=== PATIENT | female | born 1985 | race African-American/Black ===

== ENCOUNTER 2017-10-11 23:42 | Observation (INO) | payer BC ==
[2017-10-12 00:12] LABS: #Basophils 0.1 thou/uL (0.0-0.2); #Eosinphils 0.2 thou/uL (0.0-0.7); #Lymphocytes 3.4 thou/uL (1.20-3.40); #Monocytes 0.5 thou/uL (0.11-0.59); #Neutrophils 5.3 thou/uL (1.40-6.50); %Eosinophils 2.5 % (0.0-10.0); %Lymphocytes 35.8 % (21.0-51.0); %Monocytes 4.8 % (0.0-10.0); %Neutrophils 55.9 % (42.0-75.0); Hemoglobin 11.1 g/dL (12.0-16.0); Mean Corpuscular HGB CONC 33.6 g/dL (32.0-36.0); Mean Corpuscular Hemoglobin 25.9 pg (27.0-31.0); Mean Corpuscular Volume 77.2 fl (81.0-99.0); Mean Platelet Volume 8.6 fL (7.4-10.4); Platelet Count 250 thou/uL (130-400); RBC Distribution Width 17.7 % (11.5-14.5); Red Blood Cell (RBC) Count 4.29 mill/uL (4.20-5.40); White Blood Cell (WBC) Count 9.6 thou/uL (4.8-10.8)
[2017-10-12 00:18] LABS: BHCG - Serum POSITIVE (NEGATIVE); Pregs Control Background? CLEAR/WHITE (CLR/WHITE); Pregs Control Bar Appear? YES (CONTROL BAR)
[2017-10-12 00:33] LABS: ALT (SGPT) 20 U/L (8-55); AST (SGOT) 16 U/L (5-34); Albumin 3.7 g/dL (3.5-5.0); Alkaline Phosphatase 59 U/L (40-150); Anion Gap 11 mmol/L (10-20); BUN (Urea Nitrogen) 7 mg/dL (7.0-18.7); Bilirubin, Total 0.3 mg/dL (0.2-1.2); Calc. Creatinine Clearance 0 mL/min (70-130); Calcium 9.6 mg/dL (7.8-10.44); Carbon Dioxide 21 mmol/L (22-29); Chloride 105 mmol/L (98-107); Estimated GFR-MDRD Greater than 90; Glucose 116 mg/dL (70-105); Potassium 3.4 mmol/L (3.5-5.1); Protein, Total 6.7 g/dL (6.0-8.3); Sodium 134 mmol/L (136-145)
[2017-10-12 03:24] LABS: Bilirubin Negative (Negative); Blood, Urine Negative (Negative); Clarity CLEAR (Clear); Glucose, Urine (Dipstick) Negative (Negative); Leukocyte Negative (Negative); Nitrite Negative (Negative); Protein, Urine (Dipstick) Negative (Neg-Trace); Specific Gravity, Urine 1.022 (1.002-1.036); Urobilinogen 0.2 mg/dL (0.2-1.0)
[2017-10-12] MEDS ORDERED: Acetaminophen 500 MG TAB ONE (04:13)
[2017-10-12] MEDS ORDERED: Ondansetron HCl/PF 4 MG/2 ML Vial IVP PRN (08:10)
[2017-10-12 08:15] VITALS: BMI 41.9
--- NOTE | 2017-10-12 09:11 | ULT ---
PRELIMINARY REPORT/[facility]/EMERGENTY AFTER-HOURS PROCEDURE US After First Trimester, Transabdominal US , Transvaginal US Duplex Arterial/Venous of the Pelvis, Limited CLINICAL HISTORY: 32 years old, female; Pain; complicated by abdominal or pelvic pain; Periumbilical; Second trimester; Gestational age or lmp: 17w1d; ; Patient HX: Periumbilical pain, no bleeding TECHNIQUE: Real-time transabdominal and endovaginal obstetrical ultrasound of the maternal pelvis and a second o r third trimester with image documentation. Endovaginal imaging was used for better evaluat ion of the fetus and adnexa. Real-time duplex ultrasound scan of the pelvis integrating B-mode two-di mensional vascular structure, Doppler spectral analysis and color flow Doppler imaging. COMPARISON: No relevant prior studies available. FINDINGS: Transabdominal obstetrical ultrasound was performed. Transvaginal ultrasound was performed for evalua tion of the cervix. Duplex ultrasound scan with color Doppler flow and spectral waveform analysis was also performed for evaluation of pelvic and ovarian blood flow and torsion. Fetus: Single living intrauterine gestation. Heart rate: 131 bpm Presentation: Vertex. Placenta: Posterior. No abruption. Placental edge is 2.3 cm from the internal cervical os. Amniotic fluid: Appears adequate. Anatomy: Not formally evaluated. BIOMETRICS Gestational age by US: 17w1d Gestational age by LMP: 17w1d EFW: 188g - 52% MATERNAL: Uterus: No myometrial mass. Cervix: Unremarkable. Closed. Measures 3.8 cm in length. Ovaries: Left ovary not visualized. Unremarkable right ovary. No mass. Normal blood flow. No evidence of torsion. Free fluid: No significant free fluid. IMPRESSION: Single viable intrauterine . No acute findings. Thank you for allowing us to participate in the care of your patient. Dictated and Authenticated by: Vikram Wallace MD 10/12/2017 4:53 AM Central Time ([place] & [place]) TRANSABDOMINAL AND TRANSVAGINAL PELVIC ULTRASOUND WITH DUPLEX ULTRASOUND OF THE PELVIS: FINAL REPORT FINDINGS: I agree with the preliminary report given by Dr. Wallace from [facility]. POS: [facility]
[2017-10-12] MEDS: Sodium Chloride 0.9% 1,000 ML IV SCH ×2 (09:41→17:35)
[2017-10-12] MEDS ORDERED: CEFAZOLIN/Water 2 GM/20 ML SYRINGE SLOW IVP SCH (12:15)
[2017-10-12] MEDS ORDERED: CEFAZOLIN/Water 2 GM/20 ML SYRINGE ONE (12:15)
--- NOTE | 2017-10-12 12:18 | HP ---
HISTORY OF PRESENT ILLNESS: Ms. Stewart is a 32-year-old woman who is 16 weeks who developed u mbilical pain when reaching over to pick something up yesterday. She thought that it would go away o vernight, but when she got up this morning it was still hurting, so she came into the emergency room. She has not had any fevers, chills, nausea or vomiting. The pain is limited to the umbilical area and does not radiate. In the emergency room, she was noted to have an incarcerated umbilical hernia which was tender with efforts to reduce it. She has not had any vaginal bleeding or contractions. S he is G5, P4. She has had gestational diabetes and hypertension with this , but is otherwis e healthy. She has no history of high blood pressure or diabetes prior to this . The pain is better on pain medications, but no other alleviating factors are noted. PAST MEDICAL HISTORY: None chronic, gestational diabetes and hypertension with this as wel l as anemia. PAST SURGICAL HISTORY: Removal of uterine polyps in [place]. SOCIAL HISTORY: She does not smoke, drink or use illicit drugs. FAMILY HISTORY: Hypertension in her father and diabetes in her mother. REVIEW OF SYSTEMS: Ten-system review of systems is negative except per HPI and the following. The p atient has had some constipation recently and after recent bowel movement, she did notice some blood on stool. The stool itself, however, was normal and she has not had any bleeding before or since. PHYSICAL EXAMINATION: VITAL SIGNS: Patient is afebrile, heart rate 88, respirations 18, 97% saturated on room air, blood p ressure 118/75. GENERAL: Reveals a healthy appearing woman in no acute distress. She is not flushed or toxic in nathaniel earance. She is not jaundiced or icteric. HEENT: Unremarkable. NECK: Supple without lymphadenopathy or thyroid nodules. HEART: Regular in its rate and rhythm without murmurs, rubs or gallops. LUNGS: Clear to auscultation bilaterally. ABDOMEN: Soft and nondistended. She has a tender umbilical hernia which is not able to be reduced. This is not, however, distended or tense. She is otherwise nontender to abdominal palpation. EXTREMITIES: Warm and well perfused without edema. NEUROLOGIC: No focal deficits. PSYCHIATRIC: Alert, oriented, and appropriate. IMAGING DATA: Pelvic ultrasound was performed in the emergency room. This showed a single intrauter ine with heart rate of 131 and no acute findings. LABORATORY DATA: White count is normal. Electrolytes are unremarkable. LFTs are normal. Serum pre gnancy is positive and hematocrit is 33. UA was positive for ketones, but otherwise unremarkable. ASSESSMENT: Incarcerated umbilical hernia which is symptomatic and reducible. PLAN: I have recommended open repair with mesh since the patient is unable to tolerate her usual act ivities due to pain at the site. She is in her second trimester, so should tolerate this reasonably well. I have contacted her ARCHEOLOGY PROFESSOR to evaluate her and discussed with her the risks to her , but I feel that these are minimal. Inherent risks of the surgery include bleeding, infection, risks of anesthesia, damage to nearby structures including bowel and blood vessels, recurrence of the [place] ia, mesh infection requiring mesh explantation and miscarriage. The patient understands and accepts these risks and wishes to proceed. I will order antibiotics microelectronics assembler to the operating room.
[2017-10-12] MEDS ORDERED: Bupivacaine/Epinephrine 0.25% 30 ML VIAL ONE (13:31)
[2017-10-12] MEDS ORDERED: Fentanyl 250 MCG/5 ML VIAL ONE (13:35)
[2017-10-12] MEDS ORDERED: Midazolam HCl 2 mg/2 ml Vial ONE (13:35)
[2017-10-12] MEDS ORDERED: Ondansetron HCl/PF 4 MG/2 ML Vial ONE ×2 (13:43→16:29)
[2017-10-12] MEDS ORDERED: Meperidine HCl/PF 25 MG/ML VIAL SLOW IVP PRN (15:17)
[2017-10-12] MEDS ORDERED: Promethazine HCl 25 MG/ML VIAL IM PRN (15:17)
[2017-10-12] MEDS ORDERED: Promethazine HCl 25 MG/ML VIAL SLOW IVP PRN (15:17)
[2017-10-12] MEDS ORDERED: Fentanyl 100 MCG/2 ML VIAL ONE ×3 (15:35→16:28)
[2017-10-12] MEDS ORDERED: PROPOFOL 200 MG/20 ML VIAL ONE (16:29)
[2017-10-12] MEDS ORDERED: Lidocaine 1% PF 5 ML VIAL ONE (16:29)
[2017-10-12] MEDS ORDERED: Succinylcholine Chloride 20 MG/ML 10 ml SYRINGE FS ONE (16:29)
[2017-10-12] MEDS ORDERED: Glycopyrrolate 0.2 MG/ML 5 ML SYRINGE ONE (16:29)
[2017-10-12] MEDS ORDERED: Dexamethasone 20 MG/5 ML VIAL ONE (16:29)
[2017-10-12] MEDS ORDERED: HYDROcodone/Acetaminophen 7.5/325 mg Tablet PO PRN (17:45)
[2017-10-12] MEDS ORDERED: Promethazine 25 MG TAB PO PRN ×2 (17:46→17:47)
[2017-10-12] MEDS ORDERED: Morphine 4 MG/ML VIAL SLOW IVP PRN ×2 (17:47)
[2017-10-12] MEDS ORDERED: Ondansetron HCl/PF 4 MG/2 ML Vial SLOW IVP PRN (17:48)
[2017-10-12] MEDS: HYDROcodone/Acetaminophen 7.5/325 mg Tablet PO PRN ×2 (18:05→22:21)
--- NOTE | 2017-10-12 19:21 | CON ---
DATE OF CONSULTATION: 10/12/2017 CONSULTING PHYSICIAN: Emile Suárez M.D. REASON FOR CONSULTATION: A 16-week intrauterine with incarcerated umbilical hernia. HISTORY OF PRESENT ILLNESS: This is a 32-year-old at 17 weeks 0 days by last menstrual period with a past medical history significant for obesity, prediabetes, hypothyroidism and history of gesta tional hypertension, developed severe onset umbilical pain yesterday, radiating to her upper abdomen. This pain was unmanageable at home and she was brought into the ER where she had an ultrasound, it showed a live intrauterine , heart rate 131, normal posterior placenta. Uterus was no rmal. Cervical length was 3.8 cm. Ovaries were normal. She has not had any vomiting. Complains of some nausea. No fever or chills. Normal bowel movements. No urinary symptoms or vaginal bleeding. No vaginal discharge. PAST MEDICAL HISTORY: Morbid obesity, prediabetes, gestational hypertension and hypothyroidism. PAST SURGICAL HISTORY: Hysteroscopy. SOCIAL HISTORY: Negative x3. FAMILY HISTORY: Hypertension and diabetes. CURRENT MEDICATIONS: Normal saline 125 mL per hour and Zofran 4 mg IV p.r.n. nausea, vomiting. ALLERGIES: No known drug allergies. OBSTETRIC HISTORY: , term vaginal deliveries x4. GYNECOLOGIC HISTORY: ASCUS high risk HPV positive on most recent Pap last month. We will have a rep eat Pap smear . REVIEW OF SYSTEMS: Negative except as noted in HPI. PHYSICAL EXAMINATION: VITAL SIGNS: Pulse is 88, respirations 18, pulse ox 97% on room air, blood pressure 118/75. GENERAL: No acute distress, alert and oriented x3. CARDIAC: Regular rate and rhythm. LUNGS: Clear to auscultation bilaterally. ABDOMEN: Soft, nondistended. Tenderness over the umbilicus with a protruding hernia that is very te nder to palpation. I did not attempt to reduce this mass. She had positive FHTs in the 130s. EXTREMITIES: No edema, cyanosis or clubbing. PELVIC: Deferred. LABORATORY DATA: White count is normal, hemoglobin 11.1. Sodium 134, potassium 3.4, glucose is 116, creatinine 0.74. ASSESSMENT AND PLAN: This is a 32-year-old at 17 weeks 0 days with acute onset umbilical pain and a suspected incarcerated hernia. She has been seen by General Surgery and is on their service an d has been dispositioned for exploration with repair of umbilical hernia, reduction of herniated cont ents and mesh placement. I discussed with the patient the risk of surgery including miscarriage; how ever, she is in the ideal range for surgery during for optimal outcomes, discussed the medi cations use during her surgery would be safe for the baby and recommend FHTs pre-and post-surgery. I f there are any additional concerns from the primary team, please contact me via cell. Thank you for the consultation.
[2017-10-12] MEDS ORDERED: Polyethylene Glycol 3350 17 GM Packet PO PRN (21:55)
[2017-10-12] MEDS ORDERED: metFORMIN 500 MG TAB PO SCH (22:00)
[2017-10-12] MEDS ORDERED: Ferrous Sulfate 325 MG TAB PO SCH (22:00)
[2017-10-12] MEDS ORDERED: Docusate 100 MG CAP PO SCH (22:00)
[2017-10-13] MEDS: HYDROcodone/Acetaminophen 7.5/325 mg Tablet PO PRN ×3 (02:28→12:36)
[2017-10-13] MEDS ORDERED: Ferrous Sulfate 325 MG TAB PO SCH (08:00)
[2017-10-13] MEDS ORDERED: metFORMIN 500 MG TAB PO SCH (08:00)
[2017-10-13] MEDS ORDERED: Docusate 100 MG CAP PO SCH (09:00)
[2017-10-13] MEDS ORDERED: Prenatal Vitamin 1 TAB PO SCH (09:00)
[2017-10-13] MEDS ORDERED: Calcium Carbonate 600 MG TAB PO SCH (09:00)
[2017-10-13 12:41] VITALS: BP 134/78; TEMP 98
--- NOTE | 2017-10-14 14:26 | OP ---
DATE OF SERVICE: 10/12/2017. PROCEDURE: Repair of incarcerated umbilical hernia with mesh. PREOPERATIVE DIAGNOSIS: Incarcerated umbilical hernia. POSTOPERATIVE DIAGNOSIS: Incarcerated umbilical hernia. HISTORY: Ms. Stewart is a 32-year-old woman who is in her second trimester of . She had acute onset of severe umbilical pain and was sent to have an incarcerated umbilical hernia containing fat only by CT scan. Due to her severe symptoms, recommendation was made to proceed with repair. Due to the size of the hernia, repair with mesh was recommended. PROCEDURE: After informed consent was obtained and appropriate preoperative antibiotics administered , the patient was taken to the operating room. She was placed in supine position and general anesthe edilberto was administered. She was prepped and draped in a standard sterile fashion and local anesthesia infused to the skin and subcutaneous tissues at the level of the umbilicus. A circumumbilical incisi on was made and dissection carried down to the hernia sac which was dissected free circumferentially to the fascial defect. The hernia sac was found to contain some omentum with some adhesions which we re taken down sharply through the avascular plane following which part of the omentum was able to be reduced back into the abdominal cavity; however, the remaining omentum was too indurated to reduce th rough the small fascial defect, so this was ligated and excised. The thickened hernia sac was likewi se excised using electrocautery. The preperitoneal space was able to be created to mostly cover the mesh. A 6.4 cm Ventralex mesh was obtained and placed into this space and confirmed to be lying flat against the fascia anteriorly. The fascial defect was then closed with interrupted permanent braide d sutures incorporating the central strap into the closure to secure the mesh. The subcutaneous spac e was irrigated and examined for hemostasis which was excellent. The subcutaneous tissues were reapp roximated with 3-0 Monocryl suture and the skin was closed with a running 4-0 Monocryl suture. Once the skin was closed, Dermabond dressings were placed and once the Dermabond was dry, a pressure dress ing was placed and the patient was taken to recovery in good condition. Estimated blood loss was min imal. There were no complications. There were no specimens.
== END 2017-10-13 12:50 | disposition home or self-care (01) ==
LOC: ERS 23:42 → SURG A 10-12 06:21
PROVIDERS: ADMIT Specialist; ATTEND Specialist
PROC: 0WUF0JZ Supplement Abdominal Wall with Synthetic Substitute, Open Approach (ICD-10-PCS; principal; 2017-10-13)
DX: O99.612 Diseases of the digestive system complicating pregnancy, second trimester (principal); K42.0 Umbilical hernia with obstruction, without gangrene; O99.89 Other specified diseases and conditions complicating pregnancy, childbirth and the puerperium; R73.03 Prediabetes; O13.2 Gestational [pregnancy-induced] hypertension without significant proteinuria, second trimester; O99.282 Endocrine, nutritional and metabolic diseases complicating pregnancy, second trimester; E03.9 Hypothyroidism, unspecified; O99.212 Obesity complicating pregnancy, second trimester; E66.01 Morbid (severe) obesity due to excess calories; Z68.41 Body mass index [BMI] 40.0-44.9, adult; Z79.84 Long term (current) use of oral hypoglycemic drugs; Z79.899 Other long term (current) drug therapy; Z3A.17 17 weeks gestation of pregnancy
CPT/HCPCS: 36415; 36416; 76856; 80053; 81003; 84702; 84703; 85025; 96360; 96361; A4216; G0378; J1100; J2001; J2250; J2405; J2704; J3010

== ENCOUNTER 2018-03-08 05:30 | Inpatient (IN) | payer BC ==
[2018-03-08] MEDS ORDERED: Penicillin G Potassium 5 MILL.UNITS VIAL ONE ×2 (07:55→07:56)
[2018-03-08] MEDS ORDERED: Sodium Chloride 0.9% 100 ML ONE (07:55)
[2018-03-08] MEDS ORDERED: NS w/ Oxytocin 10 units 500 ML ONE (07:55)
[2018-03-08] MEDS: Lactated Ringer's 1,000 ML IV SCH ×3 (08:30→15:02)
[2018-03-08] MEDS ORDERED: Misoprostol 200 MCG TAB PR PRN (08:41)
[2018-03-08] MEDS ORDERED: Penicillin G Potassium 5 MILL.UNITS in Sodium Chloride 0.9% 100 ML IVPB SCH (08:41)
[2018-03-08] MEDS ORDERED: Acetaminophen 500 MG TAB PO PRN (08:41)
[2018-03-08] MEDS ORDERED: Methylergonovine 0.2 MG/ML VIAL IM PRN (08:41)
[2018-03-08] MEDS ORDERED: NS w/ Oxytocin 10 units 500 ML IV SCH (08:41)
[2018-03-08] MEDS ORDERED: Ibuprofen 800 MG TAB PO PRN (08:41)
[2018-03-08] MEDS ORDERED: Lidocaine 1% (PF) 30 ML VIAL SC PRN (08:41)
[2018-03-08] MEDS ORDERED: Carboprost 250 MCG/ML AMP IM PRN (08:41)
[2018-03-08] MEDS ORDERED: Butorphanol Tartrate 1 MG/ML VIAL SLOW IVP PRN (08:41)
[2018-03-08] MEDS ORDERED: Diphenoxylate HCl/Atropine Tablet PO PRN (08:41)
[2018-03-08] MEDS ORDERED: Promethazine HCl 25 MG/ML VIAL IM PRN ×2 (08:41→13:24)
[2018-03-08] MEDS ORDERED: HYDROcodone/Acetaminophen 5/325 mg Tablet PO PRN ×2 (08:41→21:22)
[2018-03-08] MEDS ORDERED: Ondansetron HCl/PF 4 MG/2 ML Vial IVP PRN ×3 (08:41→21:22)
[2018-03-08 09:01] VITALS: BMI 41.4
[2018-03-08 09:07] LABS: Hemoglobin 10.6 g/dL (12.0-16.0); Mean Corpuscular Volume 81.1 fL (78.0-98.0); Mean Platelet Volume 8.4 fL (7.4-10.4); Platelet Count 196 thou/uL (130-400); RBC Distribution Width 14.3 % (11.5-14.5); Red Blood Cell (RBC) Count 4.09 mill/uL (4.20-5.40); White Blood Cell (WBC) Count 7.8 thou/uL (4.8-10.8)
--- NOTE | 2018-03-08 09:13 | PDOC.LDHP ---
Labor and Delivery H&P Chief complaint: scheduled induction HPI: 32yo at 38w for IOL due to A2GDM, fair control with PMH of obesity and hypothyroid. Some painful ctx, irreg. No sx PIH. Current gestational age (weeks): 38 Due date: 03/22/18 Dating criteria: last menstrual period Grav: 6 Para: 4 Current complications: gestational diabetes (fair control on metformin ), gestational hypertension Abnormal US findings: No Past Medical History: obesity, h/o hypothyroid Current medications: pre-chicho vitamins, other (metformin 1500mg q hs) Previous surgical history: none, other (incarcerated umbilical hernia repair with mesh this ) Allergies/Adverse Reactions: Allergies Allergy/AdvReac Type Severity Reaction Status Date / Time No Known Allergies Allergy Verified 03/08/18 09:05 Social history: none - Physical Exam Vital signs reviewed and normal: yes General: NAD Heart: RRR Lungs: CTAB Abdomen: gravid Extremeties: no edema FHT: category 1 - Vaginal Exam cm dilated: 3 Effacement: 50% Station: -3 - OB Labs Blood type: B RH: positive Antibody Screen: negative HIV: negative RPR: negative HEPSAg: negative 1 hour GCT: positive 3 hour GTT: positive for GDM GBS: positive Urine drug screen: negative Rubella: immune - Assessment L&D Assessment: medically indicated induction - Plan Plan: admit to L&D, labor augmentation if indicated, GBS antibiotic prophylaxis , informed consent obtained, anesthesia consult for pain management, other ( accuchecks for GDM, labs for PIH)
[2018-03-08 09:49] LABS: Syphilis Antibody Nonreactive (Nonreactive); Syphilis Antibody Index 0.04 S/CO (<1.00 Non-Reactive)
[2018-03-08 09:50] LABS: HBSAg Index 0.18 S/CO (0-0.99); Hep B Surf Ag Non-Reactive S/CO (NonReactive)
[2018-03-08] MEDS ORDERED: Bupivacaine 0.5% 20 ML, fentaNYL Citrate/PF 400 MCG in Sodium Chloride 0.9% 72 ML EPIDURAL SCH (10:45)
[2018-03-08] MEDS ORDERED: DISCONTINUE ALL PREVIOUS NARCOTICS FS SCH (10:45)
[2018-03-08] MEDS ORDERED: Penicillin G 2.5 MILL.units 50 ML ONE (11:53)
[2018-03-08] MEDS ORDERED: Butorphanol Tartrate 1 MG/ML VIAL ONE (11:53)
[2018-03-08] MEDS: Penicillin G 2.5 MILL.units 2.5 MILL.UNITS in Premix Bag 1 BAG IVPB SCH ×2 (11:58→16:56)
[2018-03-08] MEDS ORDERED: Bupivacaine 0.5% 10 ML VIAL ONE (13:00)
[2018-03-08] MEDS ORDERED: Fentanyl 100 MCG/2 ML VIAL ONE (13:00)
[2018-03-08 13:22] LABS: ALT (SGPT) 7 U/L (8-55); AST (SGOT) 9 U/L (5-34); Albumin 3.1 g/dL (3.5-5.0); Alkaline Phosphatase 178 U/L (40-150); Anion Gap 12 mmol/L (10-20); BUN (Urea Nitrogen) 5 mg/dL (7.0-18.7); Bilirubin, Total 0.5 mg/dL (0.2-1.2); Calc. Creatinine Clearance 273 mL/min (70-130); Calcium 8.2 mg/dL (7.8-10.44); Carbon Dioxide 19 mmol/L (22-29); Chloride 109 mmol/L (98-107); Estimated GFR-MDRD Greater than 90; Globulin 2.4 g/dL (2.4-3.5); Glucose 96 mg/dL (70-105); Potassium 3.9 mmol/L (3.5-5.1); Protein, Total 5.5 g/dL (6.0-8.3); Sodium 136 mmol/L (136-145)
[2018-03-08] MEDS ORDERED: Acetaminophen 325 MG TAB PO PRN (13:24)
[2018-03-08] MEDS ORDERED: Eucerin (Mineral Oil/Petrolatum,White) 30 gm Jar TOP PRN (13:24)
[2018-03-08] MEDS ORDERED: diphenhydrAMINE 50 MG/ML VIAL IVP PRN (13:24)
[2018-03-08] MEDS ORDERED: Naloxone HCl 0.4 mg/ml Vial IVP PRN ×2 (13:24)
[2018-03-08] MEDS ORDERED: Lactated Ringer's 500 ML IV PRN (13:24)
[2018-03-08] MEDS ORDERED: ePHEDrine/0.9% NaCl/PF SYRINGE 50 mg/10 ml SLOW IVP PRN (13:24)
[2018-03-08] MEDS ORDERED: Communication Order-Pharmacy FS SCH (13:30)
[2018-03-08] MEDS ORDERED: fentaNYL Citrate/PF 400 MCG, Bupivacaine 0.5% 20 ML in Sodium Chloride 0.9% 72 ML EPIDURAL SCH (13:30)
[2018-03-08 14:26] LABS: Bilirubin Negative (Negative); Blood, Urine Negative (Negative); Clarity CLEAR (Clear); Glucose, Urine (Dipstick) Negative (Negative); Leukocyte Negative (Negative); Nitrite Negative (Negative); Protein, Urine (Dipstick) Negative (Neg-Trace); Specific Gravity, Urine 1.014 (1.002-1.036)
[2018-03-08] MEDS: NS / Oxytocin 40 units/1000ml 1,000 ML IV PRN ×2 (17:55→19:15)
--- NOTE | 2018-03-08 18:04 | PDOC.OPDEL ---
OB Operative/Delivery Note Delivery Dr/Surgeon: Esthela Assist: n/a Pre-Delivery Diagnosis: medically indicated induction Procedure/Post Delivery Dx: spontaneous vaginal delivery Weeks gestation: 38 Anesthesia: epidural - Findings A Sex: female - 1 min: 9 - 5 min: 9 - Additional Findings/Plan Placenta delivered: spontaneous Repaired Obstetrical Laceration: none Estimated blood loss: 327cc qbl Compilations/Other Findings: NC x 1 tight delivered through Post delivery plan: routine recovery
[2018-03-08] MEDS ORDERED: Labetalol 100 MG TAB PO SCH (20:15)
[2018-03-08] MEDS ORDERED: Milk Of Magnesia 30 ML UDCUP PO PRN (21:22)
[2018-03-08] MEDS ORDERED: diphenhydrAMINE 25 MG CAP PO PRN (21:22)
[2018-03-08] MEDS ORDERED: Benzocaine/Menthol 20-0.5% 60 ML CAN TOP PRN (21:22)
[2018-03-08] MEDS ORDERED: Bisacodyl 10 MG SUPP PR PRN (21:22)
[2018-03-08] MEDS ORDERED: Preparation H Ointment 28 GM TUBE PR PRN (21:22)
[2018-03-08] MEDS ORDERED: Lanolin Ointment 7 GM TUBE TOP PRN (21:22)
[2018-03-08] MEDS ORDERED: NS / Oxytocin 40 units/1000ml 1,000 ML IV SCH (21:22)
[2018-03-08] MEDS ORDERED: Docusate Calcium (SURFAK) 240 MG CAP PO SCH (21:45)
[2018-03-09] MEDS: Ibuprofen 800 MG TAB PO SCH ×4 (05:39→21:23)
[2018-03-09 07:12] LABS: Hemoglobin 10.3 g/dL (12.0-16.0); Mean Corpuscular HGB CONC 32.7 g/dL (32.0-36.0); Mean Corpuscular Hemoglobin 26.7 pg (27.0-31.0); Mean Corpuscular Volume 81.6 fL (78.0-98.0); Mean Platelet Volume 8.3 fL (7.4-10.4); Platelet Count 184 thou/uL (130-400); RBC Distribution Width 14.6 % (11.5-14.5); Red Blood Cell (RBC) Count 3.87 mill/uL (4.20-5.40); White Blood Cell (WBC) Count 7.6 thou/uL (4.8-10.8)
[2018-03-09] MEDS: Ferrous Sulfate 325 MG TAB PO SCH (08:59)
[2018-03-09] MEDS: Prenatal Vitamin 1 TAB PO SCH (08:59)
[2018-03-09] MEDS: Docusate Calcium (SURFAK) 240 MG CAP PO SCH ×2 (08:59→21:23)
[2018-03-09] MEDS ORDERED: Adacel (T-DAP) 0.5 ML VIAL IM ONE (09:00)
[2018-03-09] MEDS: Penicillin G 2.5 MILL.units 2.5 MILL.UNITS in Premix Bag 1 BAG IVPB SCH (09:08)
--- NOTE | 2018-03-09 10:04 | PDOC.PP ---
Post Progress Note Post Day #: 1 Subjective: ambulating to RR, no GALAN or SCREENING NURSE sx, doing well PO intake tolerated: yes Flatus: yes Ambulation: yes Weight Weight 297 lb - Physical Examination General: NAD (BP reviewed and mild range) Respiratory: non-labored breathing Abdominal: no distention Fundus firm & at: at umb Skin: no rash Neurological: no gross focal deficits Psychiatric: A&Ox3, normal affect Result Diagrams: 03/09/18 06:58 03/08/18 08:57 Additional Labs: Post Labs Blood Type B POSITIVE 03/08/18 08:57 Hep Bs Antigen Non-Reactive S/CO (NonReactive) 03/08/18 08:57 (1) Vaginal delivery Code(s): O80 - ENCOUNTER FOR FULL-TERM UNCOMPLICATED DELIVERY Status: Acute (2) Gestational hypertension Code(s): O13.9 - GESTATIONAL HTN W/O SIGNIFICANT PROTEINURIA, UNSP TRIMESTER Status: Acute (3) Delivery normal Code(s): O80 - ENCOUNTER FOR FULL-TERM UNCOMPLICATED DELIVERY; Z37.9 - OUTCOME OF DELIVERY, UNSPECIFIED Status: Active - Assessment/Plan PPD1 doing well, BP reviewed in L and D as pt is waiting on room on PP unit, mild range but no SCREENING NURSE sx.
[2018-03-10] MEDS: HYDROcodone/Acetaminophen 5/325 mg Tablet PO PRN ×2 (00:23→06:03)
[2018-03-10] MEDS: Ibuprofen 800 MG TAB PO SCH ×2 (05:47→13:31)
--- NOTE | 2018-03-10 07:59 | PDOC.PP ---
Post Progress Note Post Day #: 2 Subjective: feels throbbing pain in bilateral thighs radiating down legs, controlled with pain meds. no abdominal pain, just cramping, no heavy bleeding or chills. PO intake tolerated: yes Flatus: yes Ambulation: yes Vital Signs (12 hours) Temp Pulse Resp BP BP Pulse Ox 03/10/18 04:00 98.1 F 94 20 124/64 98 03/10/18 00:00 98.3 F 76 18 140/90 98 03/09/18 20:00 97.6 F 78 20 124/95 H 97 Weight Weight 297 lb - Physical Examination General: NAD Respiratory: non-labored breathing Abdominal: no distention, appropriately TTP (no fundal tenderness) Fundus firm & at: umb-2 Extremities: negative homans (B) Neurological: no gross focal deficits Psychiatric: normal affect Result Diagrams: 03/09/18 06:58 03/08/18 08:57 Additional Labs: Post Labs Blood Type B POSITIVE 03/08/18 08:57 Hep Bs Antigen Non-Reactive S/CO (NonReactive) 03/08/18 08:57 - Assessment/Plan PPD2 s/p TSVD GHTN- BP mostly normal, PIH warnings given for at home Met all PP milestones, adv thigh pain likely from pushing, ibuprofen rx on DC Mild asx anemia due to iron deficiency, cont PNV on DC Rh pos RImm DC home FU 6 wk
[2018-03-10 08:26] VITALS: BP 131/75; TEMP 98.6
[2018-03-10] MEDS: Prenatal Vitamin 1 TAB PO SCH (09:11)
[2018-03-10] MEDS: Docusate Calcium (SURFAK) 240 MG CAP PO SCH (09:12)
[2018-03-10] MEDS: Ferrous Sulfate 325 MG TAB PO SCH (09:12)
== END 2018-03-10 15:16 | disposition home or self-care (01) | DRG 774 ==
LOC: L&D 07:23 → 3SW 03-09 14:16
PROVIDERS: ADMIT Obstetrics & Gynecology; ATTEND Obstetrics & Gynecology
PROC: 10E0XZZ Delivery of Products of Conception, External Approach (ICD-10-PCS; principal; 2018-03-08)
PROC: 10907ZC Drainage of Amniotic Fluid, Therapeutic from Products of Conception, Via Natural or Artificial Opening (ICD-10-PCS; 2018-03-08)
PROC: 3E033VJ Introduction of Other Hormone into Peripheral Vein, Percutaneous Approach (ICD-10-PCS; 2018-03-08)
DX: O24.425 Gestational diabetes mellitus in childbirth, controlled by oral hypoglycemic drugs (principal); O98.82 Other maternal infectious and parasitic diseases complicating childbirth; Z68.41 Body mass index [BMI] 40.0-44.9, adult; Z37.0 Single live birth; Z3A.38 38 weeks gestation of pregnancy; O13.4 Gestational [pregnancy-induced] hypertension without significant proteinuria, complicating childbirth; O99.214 Obesity complicating childbirth; E66.9 Obesity, unspecified; O69.81X0 Labor and delivery complicated by cord around neck, without compression, not applicable or unspecified; O90.81 Anemia of the puerperium; D50.9 Iron deficiency anemia, unspecified; B95.1 Streptococcus, group B, as the cause of diseases classified elsewhere
CPT/HCPCS: 36415; 36416; 51702; 80053; 81003; 85027; 86780; 86850; 86900; 86901; 87340; J0595; J2001; J2540; J3010; J3490; J7050

== ENCOUNTER 2018-08-31 02:27 | Emergency (ER) | payer BC ==
[2018-08-31] MEDS ORDERED: Morphine 4 MG/ML VIAL ONE (02:43)
[2018-08-31 03:13] LABS: #Basophils 0.2 thou/uL (0.0-0.2); #Eosinphils 0.2 thou/uL (0.0-0.7); #Monocytes 0.4 thou/uL (0.11-0.59); #Neutrophils 5.5 thou/uL (1.40-6.50); %Basophils 1.7 % (0.0-1.0); %Eosinophils 1.7 % (0.0-10.0); %Lymphocytes 32.6 % (21.0-51.0); %Monocytes 4.2 % (0.0-10.0); %Neutrophils 59.9 % (42.0-75.0); Hemoglobin 11.3 g/dL (12.0-16.0); Mean Corpuscular Volume 78.3 fL (78.0-98.0); Mean Platelet Volume 8.1 fL (7.4-10.4); Platelet Count 298 thou/uL (130-400); RBC Distribution Width 14.8 % (11.5-14.5); White Blood Cell (WBC) Count 9.2 thou/uL (4.8-10.8)
[2018-08-31 03:26] LABS: BHCG - Serum Negative (NEGATIVE); Pregs Control Background? CLEAR/WHITE (CLR/WHITE); Pregs Control Bar Appear? YES (CONTROL BAR)
[2018-08-31 03:33] LABS: ALT (SGPT) 53 U/L (8-55); AST (SGOT) 115 U/L (5-34); Albumin 3.9 g/dL (3.5-5.0); Alkaline Phosphatase 101 U/L (40-150); Anion Gap 15 mmol/L (10-20); BUN (Urea Nitrogen) 15 mg/dL (7.0-18.7); Bilirubin, Total 0.4 mg/dL (0.2-1.2); Calc. Creatinine Clearance 0 mL/min (70-130); Calcium 8.8 mg/dL (7.8-10.44); Carbon Dioxide 22 mmol/L (22-29); Chloride 105 mmol/L (98-107); Estimated GFR-MDRD Greater than 90; Glucose 125 mg/dL (70-105); Lipase 25 U/L (8-78); Potassium 3.6 mmol/L (3.5-5.1); Protein, Total 6.9 g/dL (6.0-8.3); Sodium 138 mmol/L (136-145)
--- NOTE | 2018-08-31 09:48 | ULT ---
PRELIMINARY REPORT/[facility]/EMERGENTY AFTER-HOURS PROCEDURE US Pelvis Complete, Transabdominal and US Pelvis, Transvaginal and US Duplex Artery and Vein, Ovaries , Complete EXAM DATE/TIME: 08/31/2018 3:21 AM CLINICAL HISTORY: 33 years old, female; Pain and signs and symptoms; Other: N/v; Pelvic pain; Prior surgery; Surgery da te: 6+ months; Surgery type: Umbilical hernia repair; Patient HX: Pelvic pain tonight- pain more to R T side, n/v, constipation TECHNIQUE: Imaging protocol: Real-time transabdominal and transvaginal pelvic ultrasound (complete) with image d ocumentation. Transvaginal imaging was used for better evaluation of the endometrium and adnexa. Real -time duplex ultrasound scan of the arterial and venous flow of the ovaries with B-mode, color Dopple r flow and spectral waveform analysis. Complete transabdominal pelvis ultrasound and complete duplex were performed. COMPARISON: No relevant prior studies available. FINDINGS: Transabdominal ultrasound did not reveal detailed visualization of endometrium. Therefore a transvagi nal ultrasound was performed for further evaluation. Duplex ultrasound scan with color Doppler flow a nd spectral waveform analysis was also performed for evaluation of pelvic and ovarian blood flow and torsion. Uterus/cervix: Retroflexed. Endometrium measures 1cm in thickness. No myometrial mass. Right adnexa: Right ovarian complex cystic lesion, probably hemorrhagic cyst measuring up to 4 cm. Ot herwise unremarkable. Normal duplex of the ovary. No evidence of torsion. Left adnexa: No acute findings. No mass. Normal duplex of the ovary. No evidence of torsion. Free fluid: Trace right adnexal fluid. Bladder: Decompressed. IMPRESSION: Right ovarian complex/probable hemorrhagic cyst. Mildly thickened endometrium; correlate with menstrual cycle. Thank you for allowing us to participate in the care of your patient. Dictated and Authenticated by: Vikram Wallace MD 08/31/2018 5:02 AM Central Time ([place] & [place]) FINAL REPORT EMERGENCY AFTER HOURS PELVIC ULTRASOUND: Date: 08/31/18 FINDINGS/IMPRESSION: I agree with the preliminary report provided by [facility]. There is a suspected hemorrhagic cyst within the right adnexa. A small, simple cyst is seen within th e left adnexa measuring approximately 1.2 cm. Endometrial stripe of 1.0 cm can be within normal limit s for a premenopausal female. Recommend correlation with phase of menstruation. POS: [facility]
== END 2018-08-31 06:22 | disposition home or self-care (01) ==
LOC: ERS 02:27
DX: N83.201 Unspecified ovarian cyst, right side (principal); D64.9 Anemia, unspecified; Z79.84 Long term (current) use of oral hypoglycemic drugs; Z79.899 Other long term (current) drug therapy
CPT/HCPCS: 36415; 76856; 80053; 83690; 84703; 85025; 96361; 96374; J2270

== ENCOUNTER 2020-04-11 09:30 | Emergency (ER) | payer BC ==
[2020-04-11 10:26] LABS: Hemoglobin 11.1 g/dL (12.0-16.0); Mean Corpuscular HGB CONC 31.5 g/dL (32.0-36.0); Mean Corpuscular Hemoglobin 23.6 pg (27.0-31.0); Mean Platelet Volume 9.4 fL (7.4-10.4); Platelet Count 296 thou/uL (130-400); RBC Distribution Width 17.1 % (11.5-14.5); Red Blood Cell (RBC) Count 4.72 mill/uL (4.20-5.40); White Blood Cell (WBC) Count 6.8 thou/uL (4.8-10.8)
[2020-04-11 10:31] LABS: ALT (SGPT) 32 U/L (8-55); AST (SGOT) 26 U/L (5-34); Albumin 3.8 g/dL (3.5-5.0); Alkaline Phosphatase 108 U/L (40-110); Anion Gap 11 mmol/L (10-20); BUN (Urea Nitrogen) 16 mg/dL (7.0-18.7); Bilirubin, Total 0.2 mg/dL (0.2-1.2); Calc. Creatinine Clearance 0 mL/min (70-130); Calcium 8.7 mg/dL (7.8-10.44); Carbon Dioxide 24 mmol/L (22-29); Chloride 108 mmol/L (98-107); Estimated GFR-MDRD 81; Globulin 3.2 g/dL (2.4-3.5); Glucose 133 mg/dL (70-105); Potassium 4.4 mmol/L (3.5-5.1); Sodium 139 mmol/L (136-145)
[2020-04-11] MEDS ORDERED: Ketorolac Tromethamine 30 MG/ML VIAL ONE (10:55)
[2020-04-11] MEDS ORDERED: Ondansetron PF 4 MG/2 ML Vial ONE (10:55)
[2020-04-11] MEDS ORDERED: Morphine 4 MG/ML VIAL ONE (10:55)
[2020-04-11 10:56] LABS: #Basophils 0.1 thou/uL (0.0-0.2); #Eosinphils 0.3 thou/uL (0.0-0.7); #Monocytes 0.3 thou/uL (0.11-0.59); #Neutrophils 3.1 thou/uL (1.40-6.50); %Basophils 1.1 % (0.0-1.0); %Eosinophils 4.5 % (0.0-10.0); %Lymphocytes 44.3 % (21.0-51.0); %Monocytes 4.3 % (0.0-10.0); %Neutrophils 45.9 % (42.0-75.0); Anisocytosis SLIGHT = 6-15 cells (100X) (0-5/hpf); Elliptocytes SLIGHT = 2-5 cells (100X) (0-1/hpf); Hypochromia SLIGHT = 6-15 cells (100X) (0-5/hpf); MDiff Complete? YES; Microcytosis SLIGHT = 6-15 cells (100X) (0-5/hpf); Platelet Morphology Comment Appears Adequate; Tear Drops SLIGHT = 2-5 cells (100X) (0-1/hpf)
[2020-04-11 11:00] LABS: BHCG - Serum Negative (NEGATIVE); Pregs Control Background? CLEAR/WHITE (CLR/WHITE); Pregs Control Bar Appear? YES (CONTROL BAR)
--- NOTE | 2020-04-11 11:58 | CT ---
CT OF THE ABDOMEN AND PELVIS WITH IV CONTRAST INDICATION: Right lower quadrant abdominal pain COMPARISON: None FINDINGS: ABDOMEN: Lung bases: Clear Liver: There is diffuse fatty liver Gallbladder: Normal appearing. Pancreas: Normal. Adrenal glands: Normal. Spleen: Normal. Kidneys and ureters: Normal. No hydronephrosis. Vasculature: Normal. Lymph nodes:No lymphadenopathy. Free fluid in abdomen:No free fluid is evident. PELVIS: Small and large bowel: There is scattered diverticula involving the colon without evidence of active diverticulitis. Appendix:Normal Bladder: Normal. Rectal and perirectal soft tissues:Normal. Reproductive structures: There is a 2.7 cm mildly complex cyst involving the left adnexa. The visuali zed aspects of the uterus and right adnexa appear within normal limits. Free fluid in pelvis: No free fluid is evident. Lymphadenopathy pelvis: No lymphadenopathy is evident. Osseous structures: No acute osseous abnormality. No destructive osteolytic or osteoblastic lesion i s identified. There is scattered degenerative and osteoarthritic changes. Soft tissues:Normal. IMPRESSION: 1. 2.7 cm suspected complex cyst of the left adnexa. Pelvic ultrasound may be helpful for improved ch aracterization. 2. Diffuse fatty liver 3. Colonic diverticulosis
--- NOTE | 2020-04-11 14:01 | ULT ---
TRANSABDOMINAL TRANSVAGINAL PELVIC ULTRASOUND DATE:: 04/11/2020 12:55 PM CLINICAL HISTORY: History of hernia repair and polycystic ovarian syndrome. Patient is having right l ower quadrant abdominal pain that began yesterday.. COMPARISON: CT the abdomen and pelvis with contrast dated April 11, 2020. TECHNIQUE: Grayscale, color Doppler and spectral Doppler images were obtained of the pelvis utilizing a transabdominal and transvaginal approach FINDINGS: UTERUS: Size: 9.5 x 5.2 x 7.4 cm. Mass: None Cervix: Within normal limits Endometrial Thickness: 9.2 mm. RIGHT OVARY: 2.7 x 2.0 x 3.5 cm. Mass: None. Flow: Normal LEFT OVARY: 3.9 x 3.1 x 4.8 cm. Mass: There is a complex hemorrhagic cyst within the left ovary measured 3.2 x 2.5 x 3.6 cm. Flow: Normal CUL-DE-SAC: No free fluid IMPRESSION: Left ovarian hemorrhagic cyst.
[2020-04-11] MEDS ORDERED: Iopamidol-370 76% 500 ML 1 ML ONE (14:13)
[2020-04-11 14:32] LABS: Bacteria/HPF None Seen HPF (None Seen); Bilirubin Negative (Negative); Blood, Urine 1+ (Negative); Clarity Clear (Clear); Glucose, Urine (Dipstick) Normal (Negative); Ketone, Urine Negative (Negative); Leukocyte Negative Leu/uL (Negative); Nitrite Negative (Negative); Protein, Urine (Dipstick) Negative (Neg-Trace); RBC/HPF 21-50 HPF (0-3); Specific Gravity, Urine 1.053 (1.002-1.036); Squamous Epithelial 0-3 HPF (0-3); Urobilinogen Normal mg/dL (Less than 2); WBC/HPF 0-3 HPF (0-3)
== END 2020-04-11 14:51 | disposition home or self-care (01) ==
LOC: ERS 09:30
DX: N83.202 Unspecified ovarian cyst, left side (principal); E11.9 Type 2 diabetes mellitus without complications; I10 Essential (primary) hypertension
CPT/HCPCS: 36415; 74177; 76856; 80053; 81003; 81015; 84703; 85025; 87086; 93976; 96374; 96375; J1885; J2270; J2405; Q9967

== ENCOUNTER 2020-05-08 18:07 | Emergency (ER) | payer BC ==
--- NOTE | 2020-05-08 18:52 | RAD ---
RADIOGRAPH CHEST 1 VIEW: DATE: 05/08/2020 TIME: 6:45 PM HISTORY: 34-year-old female with chest pain COMPARISON: none FINDINGS: Subtle, mild, faint, patchy small infiltrate-like densities at left lower lung zone and left midlung zone. Left upper lung zone and all of right lung jain, are clear. Cardiomediastinal silhouette is normal. No pneumothorax. Lateral costophrenic angles are sharp. No gross osseous abnormality. IMPRESSION: Mild, subtle, faint left-sided infiltrates. Recommend clinical correlation for COVID-19 pneumonia.
[2020-05-08 19:25] LABS: #Basophils 0.1 thou/uL (0.0-0.2); #Lymphocytes 2.3 thou/uL (1.20-3.40); #Monocytes 0.3 thou/uL (0.11-0.59); #Neutrophils 3.2 thou/uL (1.40-6.50); %Basophils 1.9 % (0.0-1.0); %Eosinophils 0.2 % (0.0-10.0); %Lymphocytes 39.3 % (21.0-51.0); %Monocytes 4.7 % (0.0-10.0); Hemoglobin 12.5 g/dL (12.0-16.0); Mean Corpuscular HGB CONC 30.7 g/dL (32.0-36.0); Mean Corpuscular Hemoglobin 22.8 pg (27.0-31.0); Mean Corpuscular Volume 74.1 fL (78.0-98.0); Mean Platelet Volume 10.9 fL (7.4-10.4); Platelet Count 229 thou/uL (130-400); RBC Distribution Width 16.5 % (11.5-14.5); Red Blood Cell (RBC) Count 5.48 mill/uL (4.20-5.40); White Blood Cell (WBC) Count 5.9 thou/uL (4.8-10.8)
[2020-05-08 19:31] LABS: BHCG - Serum Negative (NEGATIVE); Pregs Control Background? CLEAR/WHITE (CLR/WHITE); Pregs Control Bar Appear? YES (CONTROL BAR)
[2020-05-08 19:42] LABS: Sodium 136 mmol/L (136-145)
[2020-05-08 19:43] LABS: ALT (SGPT) 52 U/L (8-55); AST (SGOT) 48 U/L (5-34); Albumin 4.4 g/dL (3.5-5.0); Alkaline Phosphatase 89 U/L (40-110); Anion Gap 18 mmol/L (10-20); BUN (Urea Nitrogen) 12 mg/dL (7.0-18.7); Bilirubin, Total 0.4 mg/dL (0.2-1.2); Calc. Creatinine Clearance 0 mL/min (70-130); Calcium 8.5 mg/dL (7.8-10.44); Carbon Dioxide 18 mmol/L (22-29); Chloride 104 mmol/L (98-107); Estimated GFR-MDRD Greater than 90; Globulin 3.8 g/dL (2.4-3.5); Glucose 95 mg/dL (70-105); Protein, Total 8.2 g/dL (6.0-8.3)
--- NOTE | 2020-05-08 20:03 | ULT ---
Right lower extremity venous Doppler ultrasound 05/08/2020 COMPARISON: None available HISTORY: Pain, assess for DVT TECHNIQUE: Multiplanar grayscale sonographic imaging venous structures right lower extremity obtained with color flow and spectral analysis FINDINGS: Right common femoral vein, greater saphenous vein, profunda femoral vein, femoral vein, pop liteal vein, and posterior tibial vein are patent. Normal blood flow, augmentation, and compression within the deep venous system. No evidence for DVT. There is a hypoechoic fluid echogenicity structur e in the popliteal fossa region measuring 3.9 x 1.2 x 1.3 cm suggesting a Garcia's cyst. IMPRESSION: No evidence for deep venous thrombosis of the right lower extremity.
[2020-05-08] MEDS ORDERED: Ibuprofen 800 MG TAB ONE (20:38)
[2020-05-08 21:11] LABS: Bacteria/HPF None Seen HPF (None Seen); Bilirubin Negative (Negative); Blood, Urine 2+ (Negative); Clarity Clear (Clear); Glucose, Urine (Dipstick) Normal (Negative); Ketone, Urine Negative (Negative); Leukocyte Negative Leu/uL (Negative); Nitrite Negative (Negative); Protein, Urine (Dipstick) Negative (Neg-Trace); RBC/HPF Greater than 50 HPF (0-3); Specific Gravity, Urine 1.024 (1.002-1.036); Squamous Epithelial 0-3 HPF (0-3); Urobilinogen Normal mg/dL (Less than 2); WBC/HPF 0-3 HPF (0-3); pH, Urine 5.5 (5.0-9.0)
[2020-05-08] MEDS ORDERED: Dexamethasone 10 MG/ML VIAL ONE (22:34)
[2020-05-09 08:21] LABS: SARS-CoV-2 MS2 Positive; SARS-CoV-2 N Gene Negative; SARS-CoV-2 S Gene Negative; SARS-CoV-2 by NAA Not Detected (NotDetected); SARS-CoV-2 orf1ab Negative
== END 2020-05-08 22:42 | disposition home or self-care (01) ==
LOC: ERS 18:07
DX: B34.9 Viral infection, unspecified (principal); Z20.828 Contact with and (suspected) exposure to other viral communicable diseases; E11.9 Type 2 diabetes mellitus without complications; I10 Essential (primary) hypertension; D64.9 Anemia, unspecified
CPT/HCPCS: 36415; 71045; 80053; 81003; 81015; 84484; 84703; 85025; 85379; 87635; 93005; J1100; U0003

== ENCOUNTER 2021-10-02 17:58 | Emergency (ER) | payer OTHER, BC ==
[2021-10-02] MEDS ORDERED: Cyclobenzaprine 10 MG TAB ONE (19:49)
[2021-10-02] MEDS ORDERED: Acetaminophen 500 MG TAB ONE (19:49)
[2021-10-02] MEDS ORDERED: Dexamethasone 4 mg/ml Vial ONE (19:49)
[2021-10-02] MEDS ORDERED: Ketorolac Tromethamine 30 MG/ML VIAL ONE (19:49)
== END 2021-10-02 21:00 | disposition home or self-care (01) ==
LOC: ERS 17:58
DX: S39.012A Strain of muscle, fascia and tendon of lower back, initial encounter (principal); M51.26 Other intervertebral disc displacement, lumbar region; E11.9 Type 2 diabetes mellitus without complications; I10 Essential (primary) hypertension; E28.2 Polycystic ovarian syndrome; D64.9 Anemia, unspecified; W04.XXXA Fall while being carried or supported by other persons, initial encounter; Y93.F9 Activity, other caregiving; Y92.231 Patient bathroom in hospital as the place of occurrence of the external cause
CPT/HCPCS: 99283; J1100; J1885